=== PATIENT | female | born 2000 | race Two or more races ===

== ENCOUNTER 2019-06-04 00:32 | Emergency (ER) | payer OTHER ==
[~2019-06-04] VITALS: Ht 172.7 cm; Wt 61.4 kg
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
[2019-06-04 01:06] LABS: BASOPHILS # (AUTO) 0.02 x10^3/uL (0-0.3); BASOPHILS % (AUTO) 0 % (0-1); EOSINOPHILS # (AUTO) 0.09 x10^3/uL (0-0.8); EOSINOPHILS % (AUTO) 1 % (1-7); LYMPHOCYTES # (AUTO) 1.39 x10^3/uL (1-6.1); LYMPHOCYTES % (AUTO) 21 % (22-44); MD NO; MEAN CORPUSCULAR HEMOGLOBIN 31.5 pg (27.0-34.8); MEAN CORPUSCULAR HGB CONC 33.6 g/dL (32.4-35.8); MEAN CORPUSCULAR VOLUME 93.5 fL (80-100); MEAN PLATELET VOLUME 7.7 fL (7.4-10.4); MONOCYTES # (AUTO) 0.31 x10^3/uL (0-1.4); MONOCYTES % (AUTO) 5 % (2-9); NEUTROPHILS % (AUTO) 73 % (42-75); PLATELET COUNT 352 x10^3/uL (130-400); RED BLOOD COUNT 4.69 x10^6/uL (3.82-5.3); RED CELL DISTRIBUTION WIDTH 12.5 % (9.6-15.2)
[2019-06-04 01:17] LABS: ALBUMIN 4.1 g/dL (3.4-5.0); ANION GAP 5 mmol/L (5-15); CALCIUM 8.6 mg/dL (8.5-10.1); CHLORIDE 108 mmol/L (98-107)
[2019-06-04 01:21] LABS: AMPHETAMINE SCREEN, URINE Negative (Negative); BARBITURATE SCREEN, URINE Negative (Negative); BENZODIAZEPINE SCREEN, URINE Negative (Negative); CANNABINOID SCREEN, URINE Negative (Negative); COCAINE SCREEN, URINE Negative (Negative); METHADONE SCREEN, URINE Negative (Negative); OPIATE SCREEN, URINE Negative (Negative)
[2019-06-04 01:22] LABS: SALICYLATE LEVEL < 1.7 mg/dL (2.8-20.0)
--- NOTE | 2019-06-04 02:04 | NUR ---
YAS RN: TELEPSYCH PAGED
--- NOTE | 2019-06-04 02:18 | NUR ---
TELEPSYCH BOT TAKEN INTO ROOM; PT. UP NEXT TO BE EVAL PER TELEPSYCH.
--- NOTE | 2019-06-04 02:24 | NUR ---
REPORT TO SOC.
--- NOTE | 2019-06-04 02:38 | NUR ---
LATONYA PAZ PHONE NUMBER [phone]
--- NOTE | 2019-06-04 03:54 | NUR ---
PT. TO BE PLACED ON LEGAL HOLD FOR INPATINET ADMISSION PER TELEPSYCH RECOMMENDATION. PT. UPDATED ON POC AND PROVIDED WITH WATER PER REQUEST. DENIES OTHER NEEDS. SITTER REMAINS IN BOYD. ROOM REMAINS SECURED.
--- NOTE | 2019-06-04 04:04 | NUR ---
PACKET FAXED TO [facility]. PT. IS SELF PAY.
--- NOTE | 2019-06-04 04:06 | NUR ---
CONFIRMATION FAX RECEIVED FROM [facility].
--- NOTE | 2019-06-04 05:35 | NUR ---
PT RESTING IN BED WITH EYES CLOSED. RESPIRATIONS EVEN AND UNLABORED. ALL SAFETY MEASURES IN PLACE. NEEDS MET. SITTER IN BOYD.
[2019-06-04] MEDS ORDERED: LORazepam 1MG TABLET PO PRN (06:00)
--- NOTE | 2019-06-04 06:04 | NUR ---
HOSPITAL BED REQUESTED.
[2019-06-04 06:19] VITALS: BP 111/59
--- NOTE | 2019-06-04 06:24 | NUR ---
PT RESTING IN BED. PROVIDED WATER, ALL NEEDS MET. ROOM SECURED PER PROTOCOL, SITTER WITHIN LINE OF SIGHT.
--- NOTE | 2019-06-04 06:42 | NUR ---
PT. CHANGED OVER TO HOSPITAL BED AND AMBULATED TO BR AND BACK TO ROOM WITH STEADY GAIT.
--- NOTE | 2019-06-04 06:56 | NUR ---
REPORT TAKEN FROM SUZI OSBORN AND SUZI NAIK. PT RESTING ON HOSPITAL BED. RESPIRATIONS EVEN AND UNLABORED. NADN. SITTER IN HALLWAY. ROOM SECURE.
--- NOTE | 2019-06-04 07:10 | NUR ---
BREAKFAST ORDERED FOR PT.
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
--- NOTE | 2019-06-04 08:34 | NUR ---
PT PROVIDED WITH BREAKFAST TRAY.
--- NOTE | 2019-06-04 09:00 | NUR ---
REPORT RECEIVED FROM SUZI RENNER AT BEDSIDE AT THIS TIME. PT IS SLEEPING, RESPS EVEN AND UNLABORED. PT HAS NOT CONSUMED ANY OF SI BREAKFAST TRAY, WHICH REMAINS AT BEDSIDE. SITTER MONITORING FROM [facility] FOR SAFETY. ROOM SECURE. CARE ASSUMED AT THIS TIME.
--- NOTE | 2019-06-04 09:30 | NUR ---
PT'S BOYFRIEND TAE CALLED REQUESTING AN UPDATE; PATIENT ASKED BY THIS RN IF INFORMATION REGARDING STATUS AND POC CAN BE SHARED WITH TAE, PATIENT GAVE PERMISSION. TAE WAS UPDATED WITH POC AND STATUS. PATIENT IS DOZING INTERMITTENTLY AT THIS TIME, PT IS CALM AND COOPERATIVE.
--- NOTE | 2019-06-04 09:47 | NUR ---
REPORT GIVEN TO SUZI STRONG WHO IS ASSUMING CARE AT THIS TIME.
--- NOTE | 2019-06-04 11:30 | NUR ---
TP RN: JULIO called, packet has been recieved & RN is reviewing chart for placement on their acceptance list.
--- NOTE | 2019-06-04 11:30 | NUR ---
Kizzy mendez in ED - 06/04/19 at 1333 by DEVIN YAS RN: [facility] called, pt is 3rd on their list for acceptance.
--- NOTE | 2019-06-04 13:37 | NUR ---
PT RESTING COMFORTABLY IN BED. LUNCH ORDERED AND PLACED IN [place]IDGE. ROOM IS SECURE SITTER IN HALLWAY
--- NOTE | 2019-06-04 16:07 | NUR ---
BOYFRIEND CALLED CONCERNED FOR PT. BOYFRIEND REASSURED OF SAFETY. PT AT THIS TIME STILL NOT WANT VISITORS AT THIS TIME.
--- NOTE | 2019-06-04 16:30 | NUR ---
PT AWAKE AT THIS TIME. EATING LUNCH. PER PT AT THIS TIME SHE IS WILLING TO ACCEPT VISITS FROM HER DAD AND ROOMMATE.
== END 2019-06-04 20:04 | disposition home or self-care (01) ==
LOC: ED 01:18
DX: S50.812A Abrasion of left forearm, initial encounter (principal); S50.811A Abrasion of right forearm, initial encounter; F33.9 Major depressive disorder, recurrent, unspecified; W45.8XXA Other foreign body or object entering through skin, initial encounter; Y93.89 Activity, other specified; Y92.89 Other specified places as the place of occurrence of the external cause; Y99.8 Other external cause status
CPT/HCPCS: 36415; 80048; 80307; 82040; 84703; 85025; 99284